=== PATIENT | female | born 1935 | race Caucasian/White ===

== ENCOUNTER 2020-01-24 17:18 | Emergency (ER) | payer MEDICARE ==
[~2020-01-24] VITALS: Ht 154.9 cm; Wt 55.8 kg
[2020-01-24] MEDS ORDERED: ELIQUIS5 MG PO (17:56)
[2020-01-24] MEDS ORDERED: COZAAR25 MG (18:15)
[2020-01-24] MEDS ORDERED: HYDRALAZINE HCL10 MG (18:16)
--- OUTSIDE RECORDS SUMMARY | 2020-01-24 18:52 | XMS ---
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 E.D. VISIT COUNT (12 MO.) 1 [facility]. Mary Emeli [address] [place] CurrieJose Martin TOTAL 2 NOTE: Visits indicate total known visits. ED/UCC VISIT TRACKING (12 MO.) 01/24/2020 17:19 [place] [place] TYPE: Emergency COMPLAINT: - [facility] STRO[facility] DIAGNOSES: - Unspecified fall, initial encounter - Transient cerebral ischemic attack, unspecified - Unspecified open wound, left lower leg, subsequent encounter - Contusion of scalp, initial encounter - Fall - multiple falls; head contusion - Unsteadiness on feet INPATIENT VISIT TRACKING (12 MO.) 01/07/2020 18:14 [facility] Demetrius [facility] TYPE: Physical Therapy DIAGNOSES: - Essential (primary) hypertension - 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 - Personal history of transient ischemic attack (TIA), and cere - Polyneuropathy, unspecified - Supraventricular tachycardia - Chronic kidney disease, stage 3 (moderate) - Paroxysmal atrial fibrillation - Malignant neoplasm of upper-inner quadrant of left female roxanne - CVA/Fall - Alcohol dependence, in remission - Repeated falls - Personal history of malignant neoplasm of breast - Estrogen receptor positive status [ER+] - Malignant neoplasm of unspecified part of unspecified bronchu - Cerebral infarction, unspecified [facility] DIAGNOSES: - Essential (primary) hypertension - Malignant neoplasm of unspecified part of unspecified bronchu - Unspecified open wound, left lower leg, subsequent encounter - Peptic ulcer, site unspecified, unspecified as acute or chron - Transient cerebral ischemic attack, unspecified - Unspecified fall, initial encounter - Contusion of scalp, initial encounter - Unsteadiness on feet - Unspecified atrial fibrillation - 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
--- NOTE | 2020-01-25 17:33 | EKG ---
[facility] [address] [facility] [place], [place] [address] Signed Sinus bradycardia Septal infarct , age undetermined Abnormal ECG No previous ECGs available Confirmed by PILAR GONZALEZ DO ([id number]) on 01/25/2020 5:32:47 PM Electronically Signed By: PILAR GONZALEZ DO 01/25/20 1733 PATIENT NAME: GOLDIE WEBB Electrocardiogram DATE OF : 31 PHYSICIAN: PILAR GONZALEZ DO REPORT #: [id number] REPORT IS CONFIDENTIAL AND NOT TO BE RELEASED WITHOUT AUTHORIZATION
== END 2020-01-24 19:40 | disposition home or self-care (01) ==
LOC: ED 17:18
DX: G45.9 Transient cerebral ischemic attack, unspecified (principal); I95.9 Hypotension, unspecified; G45.0 Vertebro-basilar artery syndrome; Z88.8 Allergy status to other drugs, medicaments and biological substances; Z79.899 Other long term (current) drug therapy
CPT/HCPCS: 70450; 70496; 70498; 71045; 80053; 84484; 85025; 85610; 85730; 93005; 93010; 99285-25; J7040